=== PATIENT | male | born 1990 | race Caucasian/White ===

== ENCOUNTER 2018-02-01 14:07 | Emergency (ER) | payer BC, OTHER ==
[2018-02-01] MEDS ORDERED: LET GEL TOPICAL 1 EA SYR TP ONE (14:24)
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
[2018-02-01] MEDS ORDERED: OXYCODONE/APAP 5/325 TAB PO ONE (14:30)
[2018-02-01 15:30] VITALS: BP 103/77
[2018-02-01] MEDS ORDERED: KETOROLAC 30 MG/1 ML SDV IM ONE (15:39)
[2018-02-01] MEDS ORDERED: KETOROLAC 30 MG/1 ML SDV ONE (15:40)
== END 2018-02-01 15:48 | disposition home or self-care (01) ==
DX: S43.101A Unspecified dislocation of right acromioclavicular joint, initial encounter (principal); S40.811A Abrasion of right upper arm, initial encounter; J45.909 Unspecified asthma, uncomplicated; V18.4XXA Pedal cycle driver injured in noncollision transport accident in traffic accident, initial encounter; Y92.89 Other specified places as the place of occurrence of the external cause; Y99.8 Other external cause status; Y93.55 Activity, bike riding
CPT/HCPCS: A4565; J1885